=== PATIENT | female | born 1940 | race Caucasian/White ===

== ENCOUNTER → 2023-10-03 13:28 | Outpatient (CLI) | payer MEDICARE, SELFPAY ==
[2023-10-03 14:51] LABS: Cholesterol 193 mg/dL (140-199); HDL Cholesterol 62 mg/dL (40-60); LDL Cholesterol Calculated 115 mg/dL (<100); Triglycerides 79 mg/dL (35-150)
== END ==
PROVIDERS: PCP Family Medicine; Referring Provider Family Medicine; Visit Provider Family Medicine
DX: Z13.220 Encounter for screening for lipoid disorders (principal)
CPT/HCPCS: 80061

== ENCOUNTER 2024-08-27 15:29 | Emergency (ER) | payer MEDICARE, SELFPAY ==
[2024-08-27 15:31] VITALS: BP 166/83; PULSE 67; RESP 20; TEMP 37; O2SAT 99; BMI 25.8
--- NOTE | 2024-08-27 15:48 | ED_ITS ---
<Statement entered by Michael Becker, - 08/27/24 18:18> Dr. Becker: I was immediately available in the department for consultation. Documentation has been reviewed. I agree with assessment and plan. HPI - Abdominal Pain General Chief Complaint: Abdominal Pain Stated Complaint: constipated t-12, sent by GI Time Seen by Provider: 08/27/24 15:48 Source: patient Mode of arrival: Ambulatory History of Present Illness HPI narrative: 84-year-old female presents for chief complaint of not having a bowel movement in the last 12 days. She is denying any abdominal pain, nausea, vomiting, urinary symptoms or back pain. She states prior to this she was having diarrhea on and off for the last year and a half endorsing some type of irritable bowel syndrome. She saw her PCP on August 08 2024 for this very reason. The diarrhea stopped and since that time 12 days ago no further bowel movements. She continues to be hungry, she is eating regularly 5 times a day in a grazing type pattern, solid foods include cheese sandwiches, toast and [place], yogurts and fruits, her last oral intake was 12 noon today. She did try to Fleet enemas 2 days apart without any results, she has been doing MiraLax twice daily. She states she is still passing gas, denies feeling any bloating per se, again no abdominal pain and her clothes are fitting normally. She states she is urinating just fine, drinking 6-8 glasses of water per day. She reports no changes in her overall health, no weight loss or weight gain, no disruption during sleep. History is significant for a midline abdominal scar she apparently had a para esophageal hernia repair with mesh in 2004, she has a chronic left femoral hernia that is reducible, breast cancer with double mastectomy in 2005 no sequelae, COPD no regular medications for this, she spends half her time in [facility] and the other half here in [place]. She has never had a colonoscopy and has been trying to schedule 1. She has a retired psychologist. Both of her parents of cancer her mother from breast at age 66 and her father unknown age from lung cancer. All other systems are reviewed and are negative. Related Data Previous Rx's Medication Instructions Recorded carbamide peroxide 6.5 % ear drops 2 drp otic (ear) DAILY #15 mL 09/28/23 (Debrox) duloxetine 60 mg capsule,delayed 60 mg PO BID #90 caps 06/17/24 release ketoconazole 2 % topical foam 1 applic topical BID seborrheic 08/14/24 dermatitis 4 weeks #100 grams Allergies Allergy/AdvReac Type Severity Reaction Status Date / Time grass pollen AdvReac Mild Unverified 08/08/24 11:09 Review of Systems Review of Systems Narrative: All other systems reviewed and are negative. Patient History Medical History Cognitive decline Age related osteoporosis Diarrhea Sleep apnea COPD (chronic obstructive pulmonary disease) Seasonal allergies Depression (~1959) Anxiety (~1959) Peripheral neuropathy (~2018) Osteoporosis (~2007) Fractures Chicken pox Anemia Shingles (~07/2019) Hearing loss (~2019) Cataracts, bilateral (~03/2019) Frequent UTI (~1961) Paraesophageal hernia (~2007) Breast cancer (~2006) PTSD (post-traumatic stress disorder) Surgical History Anesthesia History of ankle surgery (~1999) Social History Smoking Status: Former smoker Smoking Status: Former smoker Substance Use Type: does not use Exam Initial Vital Signs Initial Vital Signs: Vital Signs Temperature 98.6 F 08/27/24 15:31 Pulse Rate 67 08/27/24 15:31 Respiratory Rate 20 08/27/24 15:31 Blood Pressure 166/83 H 08/27/24 15:31 Pulse Oximetry 99 08/27/24 15:31 Oxygen Delivery Method Room Air 08/27/24 15:31 Vital signs reviewed and are normal except for elevated systolic reading. Const Other: Smiling, seated, reading her magazine, no distress, pleasantly conversing. HENMT Mouth: oral mucosae normal, lip normal and tongue normal Eyes Sclera: sclerae normal Neck Neck: normal visual inspection, full ROM, trachea midline and supple Resp Effort & Inspection: normal respiratory effort and able to speak in complete sentences Auscultation: clear to auscultation bilaterally, no rales, no rhonchi and no wheezes Cardio Rate: regular rate Rhythm: regular rhythm GI Inspection: normal to inspection, non-distended, no incisions and scar Palpation: soft, no hepatosplenomegaly, No firm and No guarding Percussion: normal to percussion and dullness to percussion (LLQ) Auscultation: no hyperactive bowel sounds and hypoactive bowel sounds Rectal Exam: visual inspection normal, normal sphincter tone, No fecal impaction, heme negative stool (Yellow minimal mucus only) and other (No stool in the rectal vault nontender exam) Skin General: no rashes or lesions noted, elasticity normal and turgor normal Course Orders Ordered: ED Orders 08/27/24 16:09 CT abdomen pelvis w con Stat 08/27/24 16:21 CBC Auto Diff [Complete Blood Count AUTO DIFF] Stat CMP [Comprehensive Metabolic Panel] Stat Lipase Stat Vital Signs Vital signs: Vital Signs - 8 hr 08/27/24 15:31 Temperature 98.6 F Pulse Rate 67 Respiratory Rate 20 Blood Pressure 166/83 H Pulse Oximetry 99 Oxygen Delivery Method Room Air MDM - Abdominal Pain Lab Data Lab results narrative: No prior labs in the system, CBC, CMP, lipase obtained. All are normal. 08/27/24 16:21 08/27/24 16:21 Labs: Lab Results 08/27/24 Range/Units 16:21 WBC 5.0 (4.5-11.0) X10^3/uL RBC 4.76 (4.0-5.2) X10^6/uL Hgb 14.3 (12.0-16.0) g/dL Hct 42.3 (36-46) % MCV 88.9 (80-100) fL MCH 30.1 (26-34) PG MCHC 33.8 (30-36) % RDW 14.0 (11.6-14.8) % Plt Count 224 (150-400) X10^3/uL Neut % (Auto) 52.7 (50-75) % Lymph % (Auto) 37.9 (25-40) % Bee % (Auto) 6.2 (3-14) % Eos % (Auto) 2.1 (2-4) % Baso % (Auto) 1.1 (0-2) % Neut # (Auto) 2600 (2487-5396) /uL Lymph # (Auto) 1900 (8026-8027) /uL Bee # (Auto) 300 (0-900) /uL Eos # (Auto) 100 (0-450) /uL Baso # (Auto) 100 (0-100) /uL Sodium 136 L (137-145) mmol/L Potassium 4.0 (3.4-5.1) mmol/L Chloride 102 (98-107) mmol/L Carbon Dioxide 28 (22-32) mmol/L BUN 26 H (7-17) mg/dL Creatinine 0.65 (0.52-1.04) mg/dL Estimated GFR > 60 (>60) mL/min BUN/Creatinine Ratio 40.0 H (6-22) Glucose 99 (80-110) mg/dL Calcium 9.9 (8.4-10.2) mg/dL Total Bilirubin 0.7 (0.2-1.3) mg/dL AST 24 (14-36) IU/L ALT 16 (<35) IU/L Alkaline Phosphatase 52 (38-126) U/L Total Protein 7.0 (6.3-8.2) g/dL Albumin 4.1 (3.5-5.0) g/dL Globulin 2.9 (1.7-4.1) g/dL Albumin/Globulin Ratio 1.4 (1.0-2.8) Lipase 60 (23-300) U/L Imaging Data CT scan - abdomen/pelvis: My Impression: Deferred to radiologist's interpretation below. Radiologist's Impression: PROCEDURE: CT ABDOMEN PELVIS W CON INDICATIONS: No BM x 12 days. Hx breast CA 2005. TECHNIQUE: After the administration of intravenous contrast, axial sections acquired from the lung bases to the pubic symphysis. Coronal and sagittal reformats were performed. For radiation dose reduction, the following was used: automated exposure control, adjustment of mA and/or kV according to patient size. COMPARISON: None. FINDINGS: Image quality: Diagnostic. Lower Chest: 3 mm micronodule of the left lower lobe (5/10) is indeterminate. The heart is enlarged. ABDOMEN: Liver: Multiple cysts are seen in the central liver that measure fluid attenuation. Gallbladder: No radiopaque gallstones or wall thickening. Biliary ducts: Mild central intrahepatic biliary duct dilatation. Common bile duct is dilated and measures up to 22 mm in diameter at the luisito hepatis and 11 mm at the pancreatic head. The duct tapers to the ampulla. No calcified gallstone. Pancreas: Main pancreatic duct is dilated measuring approximately 7 mm in the pancreatic head. No pancreatic mass is seen. Spleen: Spleen is mildly enlarged. Coarse calcifications are likely secondary to remote prior granulomatous disease. Adrenal Glands: No adrenal nodules. Kidneys and Ureters: No hydronephrosis. No complex renal cystic lesion which requires follow up. Fat attenuation lesions are seen in the right kidney measuring 1.3 cm superiorly and up to 1.8 cm more inferiorly consistent with angiomyolipomas. Stomach and Bowel: Redundant colon with a large volume of stool. There is relative underdistention of the distal sigmoid colon without an obstructing mass seen. Small bowel loops are nondilated. Intramural lipoma is noted within a small bowel loop of the right lower quadrant and also in the left upper quadrant. Cecum is located in the right upper quadrant. Appendix is not visualized. Gastric wall appears mildly thickened diffusely. Peritoneum: No abnormal intraperitoneal fluid. No free air. Ventral Wall: Postsurgical changes from prior ventral hernia repair. No recurrent ventral hernia is seen. Abdominal Nodes: Nonspecific lymph node is seen in the left upper abdomen adjacent to the greater curvature of the stomach measuring 0.9 cm in short axis. No retroperitoneal or mesenteric adenopathy by size criteria. Vessels: Aorta and inferior vena cava are normal in size. PELVIS: Pelvic Organs: Unremarkable. Bladder: No bladder wall thickening, accounting for underdistention. Pelvic Nodes: No enlarged lymph nodes. Miscellaneous: No inguinal hernias are seen. Bones: No aggressive osseous abnormality. Mild chronic deformity of the right inferior pubic ramus. No acute osseous abnormality is seen. Degenerative changes are seen in the included spine. Mild T11 compression fracture is of uncertain age, but is favored to be chronic. IMPRESSION: 1. Redundant colon with a large volume of stool. An intermediate length segment of nondistended distal sigmoid colon is seen without mass-like obstruction. 2. Mild diffuse gastric wall thickening could indicate a nonspecific gastritis. 3. Extrahepatic and mild intrahepatic biliary duct dilatation to the level of the ampulla. No obstructing calculus or mass is seen. There is also dilation of the main pancreatic duct. Recommend correlation with laboratory findings to exclude biliary obstruction. Consider follow-up pancreas protocol MRI or CT to exclude a subtle underlying mass. 4. Additional findings as indicated in the body report. Approved by: Kyaw Pizano M.D. on 08/27/2024 at 17:22 [facility] Narrative Medical decision making narrative: Normal labs, no specific abdominal pain, CT scan showed primarily redundant colon with a large volume of stool. An intermediate length segment of nondistended distal sigmoid colon is seen without mass-like obstruction. No clinical findings on examination to warrant surgical consult, discussed other bowel strategies including clear liquids for the next 24-48 hours, doing a trial of magnesium citrate such as a trauma now that we know her renal function is normal, and she will have to contact her PCP in the morning to schedule an emergency room visit follow-up as they were other findings on her CT scan that still warrant additional investigation including: Extrahepatic and mild intrahepatic biliary duct dilatation to the level of the ampulla. No obstructing calculus or mass is seen. There is also dilation of the main pancreatic duct. Her lab work was normal today including all liver function and lipase, low likelihood of a biliary obstruction, regarding possible subtle underlying mass, is recommended that her doctor order either a pancreas protocol MRI or repeat CT. This was discussed with the patient again she will contact her provider in the morning. She is yet to have a colonoscopy in her lifetime apparently she had 1 scheduled but it was ?the wrong kind so she will need to follow this and her PCP can certainly assist her with this as well. Discussed red flag warning signs in great detail and to return to the emergency department if she still has not had a bowel movement in the next 24-48 hours, she develops any new or worrisome symptoms. Discharge Plan Departure Patient Disposition: Home Clinical Impression: Constipation Qualifiers: Constipation type: unspecified constipation type Qualified Code(s): K59.00 - Constipation, unspecified Instructions: DI for Constipation Activity Restrictions/Additional Instructions: I would like you to keep your diet clear liquids for the next 24-48 hours, please do hydrate, you may try magnesium citrate also known as sit trauma [id number] to try and evacuate your colon which did show quite a bit of stool retained. Please contact your PCP tomorrow morning and schedule a follow- up emergency room visit. Your lab work today was normal, but the CT scan did quite a bit of retained stool in the colon, as well as show some other abnormalities (Extrahepatic and mild intrahepatic biliary duct dilatation to the level of the ampulla. No obstructing calculus or mass is seen. There is also dilation of the main pancreatic duct) and these findings warrant follow-up and potentially repeat imaging or a different type of imaging such as MRI. Again this can be arranged by your doctor who will be have access to these notes as well as your diagnostic results from [facility]. Your PCP should be able to assist you with obtaining a colonoscopy as well I can appreciate the frustration you have in attempting to schedule this. Please do not hesitate to return to the emergency department if you have persistent symptoms, any new or worrisome symptoms. Prescriptions: No Action Debrox 6.5 % drops 2 drp otic (ear) DAILY Qty: 15 0RF duloxetine 60 mg capsule,delayed release(DR/EC) 60 mg PO BID Qty: 90 4RF ketoconazole 2 % foam 1 applic topical BID 28 Days Qty: 100 0RF Referrals: Brenda Garcia MD [Primary Care Provider] - Stand Alone Forms: Patient Portal/API
--- NOTE | 2024-08-27 16:09 | DI.CT.S_ITS ---
PROCEDURE: CT ABDOMEN PELVIS W CON INDICATIONS: No BM x 12 days. Hx breast CA 2006. TECHNIQUE: After the administration of intravenous contrast, axial sections acquired from the lung bases to the pubic symphysis. Coronal and sagittal reformats were performed. For radiation dose reduction, the following was used: automated exposure control, adjustment of mA and/or kV according to patient size. COMPARISON: None. FINDINGS: Image quality: Diagnostic. Lower Chest: 3 mm micronodule of the left lower lobe (5/10) is indeterminate. The heart is enlarged. ABDOMEN: Liver: Multiple cysts are seen in the central liver that measure fluid attenuation. Gallbladder: No radiopaque gallstones or wall thickening. Biliary ducts: Mild central intrahepatic biliary duct dilatation. Common bile duct is dilated and measures up to 22 mm in diameter at the luisito hepatis and 11 mm at the pancreatic head. The duct tapers to the ampulla. No calcified gallstone. Pancreas: Main pancreatic duct is dilated measuring approximately 7 mm in the pancreatic head. No pancreatic mass is seen. Spleen: Spleen is mildly enlarged. Coarse calcifications are likely secondary to remote prior granulomatous disease. Adrenal Glands: No adrenal nodules. Kidneys and Ureters: No hydronephrosis. No complex renal cystic lesion which requires follow up. Fat attenuation lesions are seen in the right kidney measuring 1.3 cm superiorly and up to 1.8 cm more inferiorly consistent with angiomyolipomas. Stomach and Bowel: Redundant colon with a large volume of stool. There is relative underdistention of the distal sigmoid colon without an obstructing mass seen. Small bowel loops are nondilated. Intramural lipoma is noted within a small bowel loop of the right lower quadrant and also in the left upper quadrant. Cecum is located in the right upper quadrant. Appendix is not visualized. Gastric wall appears mildly thickened diffusely. Peritoneum: No abnormal intraperitoneal fluid. No free air. Ventral Wall: Postsurgical changes from prior ventral hernia repair. No recurrent ventral hernia is seen. Abdominal Nodes: Nonspecific lymph node is seen in the left upper abdomen adjacent to the greater curvature of the stomach measuring 0.9 cm in short axis. No retroperitoneal or mesenteric adenopathy by size criteria. Vessels: Aorta and inferior vena cava are normal in size. PELVIS: Pelvic Organs: Unremarkable. Bladder: No bladder wall thickening, accounting for underdistention. Pelvic Nodes: No enlarged lymph nodes. Miscellaneous: No inguinal hernias are seen. Bones: No aggressive osseous abnormality. Mild chronic deformity of the right inferior pubic ramus. No acute osseous abnormality is seen. Degenerative changes are seen in the included spine. Mild T11 compression fracture is of uncertain age, but is favored to be chronic. IMPRESSION: 1. Redundant colon with a large volume of stool. An intermediate length segment of nondistended distal sigmoid colon is seen without mass-like obstruction. 2. Mild diffuse gastric wall thickening could indicate a nonspecific gastritis. 3. Extrahepatic and mild intrahepatic biliary duct dilatation to the level of the ampulla. No obstructing calculus or mass is seen. There is also dilation of the main pancreatic duct. Recommend correlation with laboratory findings to exclude biliary obstruction. Consider follow-up pancreas protocol MRI or CT to exclude a subtle underlying mass. 4. Additional findings as indicated in the body report. Approved by: Kyaw Pizano M.D. on 08/27/2024 at 17:22
[2024-08-27 16:39] LABS: Add Manual Diff / Slide Review NO; Basophils Absolute Auto 100 /uL (0-100); Basophils Percent Auto 1.1 % (0-2); Eosinophils Absolute Auto 100 /uL (0-450); Eosinophils Percent Auto 2.1 % (2-4); Hematocrit 42.3 % (36-46); Hemoglobin 14.3 g/dL (12.0-16.0); Lymphocytes Absolute Auto 1900 /uL (1100-4500); Lymphocytes Percent Auto 37.9 % (25-40); Mean Corpuscular HGB Conc 33.8 % (30-36); Mean Corpuscular Hemoglobin 30.1 PG (26-34); Mean Corpuscular Volume 88.9 fL (80-100); Monocytes Absolute Auto 300 /uL (0-900); Monocytes Percent Auto 6.2 % (3-14); Neutrophils Absolute Auto 2600 /uL (1500-7000); Neutrophils Percent Auto 52.7 % (50-75); Platelet Count 224 X10^3/uL (150-400); Red Blood Cell Count 4.76 X10^6/uL (4.0-5.2)
[2024-08-27 16:50] LABS: Alanine Aminotransferase 16 IU/L (<35); Albumin 4.1 g/dL (3.5-5.0); Albumin Globulin Ratio 1.4 (1.0-2.8); Alkaline Phosphatase 52 U/L (38-126); Aspartate Aminotransferase 24 IU/L (14-36); Bilirubin Total 0.7 mg/dL (0.2-1.3); Blood Urea Nitrogen 26 mg/dL (7-17); Calcium 9.9 mg/dL (8.4-10.2); Carbon Dioxide 28 mmol/L (22-32); Chloride 102 mmol/L (98-107); Estimated Glomerular Filt Rate > 60 mL/min (>60); Globulin 2.9 g/dL (1.7-4.1); Glucose 99 mg/dL (80-110); HEMOLYSIS 38 (0-50); Lipase 60 U/L (23-300); Sodium 136 mmol/L (137-145)
[2024-08-27 18:13] VITALS: BP 150/88; PULSE 70; RESP 14; O2SAT 94
== END 2024-08-27 18:17 | disposition home or self-care (01) ==
PROVIDERS: Emergency Provider Physician Assistant Medical; PCP Family Medicine
DX: K59.00 Constipation, unspecified (principal)
CPT/HCPCS: 36415; 74177; 80053; 83690; 85025; 99283; 99284; Q9967

== ENCOUNTER → 2024-09-08 07:44 | Outpatient (CLI) | payer MEDICARE, SELFPAY ==
[2024-09-08 08:54] LABS: Add Manual Diff / Slide Review NO; Basophils Absolute Auto 0 /uL (0-100); Basophils Percent Auto 0.9 % (0-2); Eosinophils Absolute Auto 100 /uL (0-450); Eosinophils Percent Auto 2.8 % (2-4); Hemoglobin 13.9 g/dL (12.0-16.0); Lymphocytes Absolute Auto 1700 /uL (1100-4500); Lymphocytes Percent Auto 39.7 % (25-40); Mean Corpuscular HGB Conc 33.9 % (30-36); Mean Corpuscular Hemoglobin 30.2 PG (26-34); Mean Corpuscular Volume 89.2 fL (80-100); Monocytes Absolute Auto 300 /uL (0-900); Monocytes Percent Auto 6.3 % (3-14); Neutrophils Absolute Auto 2100 /uL (1500-7000); Neutrophils Percent Auto 50.3 % (50-75); Platelet Count 202 X10^3/uL (150-400); Red Cell Distribution Width 14.3 % (11.6-14.8); White Blood Cell Count 4.2 X10^3/uL (4.5-11.0)
--- NOTE | 2024-09-08 09:23 | DI.MRI.S_ITS ---
PROCEDURE: MR HEAD/BRAIN WO CON INDICATIONS: cognitive decline TECHNIQUE: Non-contrast axial T1 spin echo, axial T2 fast spin echo, sagittal and axial FLAIR, coronal T2 fast spin echo, axial gradient echo, axial diffusion and ADC through the brain. COMPARISON: None. FINDINGS: Image quality: Excellent. CSF spaces: Ventricles appear symmetric in size and shape. Basal cisterns are patent. No extra-axial fluid collections. Brain: No intracranial bleeds or mass effects. There is cerebral volume loss for age. There are periventricular and deep white matter chronic small vessel ischemic changes. Brainstem appears normal. Diffusion-weighted images show no acute infarct. No chronic ischemic insults. Normal intravascular flow voids are present. Skull and face: Calvarial bone marrow is normal in signal. Orbits are normal. Note is made of bilateral lens replacements. Sinuses: Sinuses and mastoids are clear. IMPRESSION: Brain MRI within normal limits for age, with note made of brain parenchymal volume loss and chronic small vessel ischemic change. No prior territorial infarct can be seen. No findings of acute or subacute infarction can be seen. To the limits of this noncontrast study, no findings of intracranial masses or mass effect can be seen. Dictated by: Marquise Chandra M.D. on 09/08/2024 at 10:13 Approved by: Marquise Chandra M.D. on 09/08/2024 at 10:14
[2024-09-08 09:35] LABS: Alanine Aminotransferase 13 IU/L (<35); Albumin 3.9 g/dL (3.5-5.0); Albumin Globulin Ratio 1.5 (1.0-2.8); Alkaline Phosphatase 60 U/L (38-126); Aspartate Aminotransferase 19 IU/L (14-36); BUN Creatinine Ratio 40.3 (6-22); Bilirubin Total 0.6 mg/dL (0.2-1.3); Blood Urea Nitrogen 25 mg/dL (7-17); Calcium 10.2 mg/dL (8.4-10.2); Carbon Dioxide 27 mmol/L (22-32); Chloride 105 mmol/L (98-107); Estimated Glomerular Filt Rate > 60 mL/min (>60); Globulin 2.6 g/dL (1.7-4.1); Glucose 95 mg/dL (80-110); HEMOLYSIS < 15 (0-50); Potassium 4.1 mmol/L (3.4-5.1); Sodium 138 mmol/L (137-145); Total Protein 6.5 g/dL (6.3-8.2)
[2024-09-08 10:07] LABS: TSH w/ Reflex to FT4 3.05 uIU/mL (0.47-4.68)
[2024-09-08 10:22] LABS: Vitamin B12 Reflex MMA if <400 365 pg/mL (239-931)
[2024-09-11 00:15] LABS: Methylmalonic Acid,Serum 449 nmol/L (0-378)
== END ==
PROVIDERS: PCP Family Medicine; Referring Provider Family Medicine; Visit Provider Family Medicine
DX: R41.89 Other symptoms and signs involving cognitive functions and awareness (principal)
CPT/HCPCS: 36415; 70551; 80053; 82607; 83921; 84443; 85025

== ENCOUNTER 2024-09-26 10:21 | Day surgery (SDC) | payer MEDICARE, SELFPAY ==
[2024-09-26] MEDS: FLEETS ENEMA 1 EACH PR (10:52)
[2024-09-26 11:14] VITALS: BP 150/87; PULSE 68; RESP 18; TEMP 36.7; O2SAT 98
--- NOTE | 2024-09-26 11:29 | PM.HP.1 ---
History of Present Illness History of Present Illness Date Patient Seen: 09/26/24 Time Patient Seen: 11:29 Chief complaint: Dx Colonoscopy w/poss bx Narrative: This is an 84-year-old white female with 3 years of change in bowel habits. She has never had a colonoscopy before. She has had predominant diarrhea up until the last few months where she has had predominantly constipation. She had a CT scan performed in August which demonstrated a thickened narrowed segment of sigmoid colon with redundant proximal colon full of stool. She has been trying to treat herself with Mag citrate and MiraLax without success. She has altered her diet to decrease white bread and increase whole grains and fiber but still does not have what she would call a normal bowel movement. [facility] Medical History Declining functional status Seborrheic dermatitis Common bile duct dilation Cognitive decline Age related osteoporosis Diarrhea Sleep apnea COPD (chronic obstructive pulmonary disease) Seasonal allergies Depression (~1959) Anxiety (~1959) Peripheral neuropathy (~2018) Osteoporosis (~2007) Fractures Chicken pox Anemia Shingles (~07/2019) Hearing loss (~2019) Cataracts, bilateral (~03/2019) Frequent UTI (~1961) Paraesophageal hernia (~2007) Breast cancer (~2006) PTSD (post-traumatic stress disorder) Surgical History Anesthesia History of ankle surgery (~1999) Social History Smoking Status: Former smoker Meds Home Medications and Allergies Home Medications Medication Instructions Recorded Confirmed Type carbamide peroxide 6.5 % ear drops 2 drp otic (ear) DAILY #15 mL 09/28/23 09/10/24 Rx (Debrox) duloxetine 60 mg capsule,delayed 60 mg PO BID #90 caps 06/17/24 09/10/24 Rx release diazepam 2 mg tablet (Valium) 2 mg PO BEDTIME PRN anxiety #10 09/08/24 09/10/24 Rx tabs donepezil 5 mg tablet 5 mg PO DAILY #30 tabs 09/08/24 09/10/24 Rx ketoconazole 2 % shampoo 1 applic topical 2XW #120 mL 09/08/24 09/10/24 Rx sodium,potassium,mag sulfates 17.5 See Rx Instructions PO .COMPLEX 09/11/24 Rx gram-3.13 gram-1.6 gram oral soln #354 mL (Suprep Bowel Prep Kit) Allergies Allergy/AdvReac Type Severity Reaction Status Date / Time grass pollen AdvReac Mild Unverified 09/10/24 16:34 Review of Systems Constitutional Constitutional: Denies anorexia, Denies increased appetite, Denies weight gain and Denies weight loss Eyes Eyes: Reports system reviewed and no additional complaints, except as documented ENT Ears, Nose, Mouth, and Throat: Yes system reviewed and no additional complaints, except as documented Cardiovascular Cardiovascular: Reports system reviewed and no additional complaints, except as documented Respiratory Respiratory: Reports system reviewed and no additional complaints, except as documented Gastrointestinal Gastrointestinal: Denies melena, Reports bloating, Denies hematochezia, Reports change in stool character, Reports constipation and Denies vomiting Genitourinary Genitourinary: Reports system reviewed and no additional complaints, except as documented Musculoskeletal Musculoskeletal: Reports system reviewed and no additional complaints, except as documented Integumentary/Breasts Skin/Breast: Reports system reviewed and no additional complaints, except as documented Neurologic Neurologic: Reports system reviewed and no additional complaints, except as documented Psychiatric Psychiatric: Reports system reviewed and no additional complaints, except as documented Endocrine Endocrine: Reports system reviewed and no additional complaints, except as documented Hematologic/Lymphatic Hematologic/Lymphatic: Reports system reviewed and no additional complaints, except as documented Allergic/Immunologic Allergic/Immunologic: Reports system reviewed and no additional complaints, except as documented Exam Const General: cooperative and frail appearing [facility] Head: normocephalic and atraumatic Mouth: oral mucosae normal and moist mucous membranes Neck Neck: normal visual inspection and trachea midline Resp Effort & Inspection: normal respiratory effort and able to speak in complete sentences Auscultation: clear to auscultation bilaterally Cardio Rate: regular rate Rhythm: regular rhythm GI Palpation: soft, No firm, No guarding and No tender Skin General: no rashes or lesions noted Neuro General: patient alert, patient awake and patient oriented x3 Extrem General: normal to inspection Psych Appearance: grossly normal Objective Imaging CT scan - abdomen: My impression: CT scan of the abdomen independently reviewed by me shows potentially a thickened area of the sigmoid colon that may be worth endoscopic investigation Assessment & Plan Assessment and plan (1) Encounter for diagnostic colonoscopy due to change in bowel habits: Status: Acute (2) Abnormal CT of the abdomen: Status: Acute Plan given the change in bowel habits abnormal CT of the abdomen, it is worth performing a colonoscopy on this patient. She completed the prep as instructed she states over 2 days, but still has some chunks of brown stool. Explained to her we would do our best to see what we can see and given the findings on the CT scan at least a flexible sigmoidoscopy may be helpful in clearing cancer diagnosis from the suspicious area. Patient presents for initial screening colonoscopy Risks, benefits, alternatives to colonoscopy explained, including but not limited to bowel perforation or other serious complication requiring surgery at less than 1 in 5000 colonoscopies, abdominal pain, cramping or bleeding and less than 1% of colonoscopies, and the chances that we find a diagnosis that would require further intervention of about 2%. Patient agrees to proceed. Time-Based Coding :: [TOTAL MINUTES] spent with patient and on the chart (including review of chart, obtaining history, exam, reviewing outside data, placing orders, documenting exam and treatment plan, and counseling patient) on [DATE].
--- NOTE | 2024-09-26 12:23 | PM.OP.COLON ---
Operative Date/Time/Diagnoses Date of procedure: 09/26/24 Time of procedure: 12:23 Pre-op diagnosis: Constipation Post-op diagnosis: same ( pancolonic diverticulosis, subcutaneous lipoma of the splenic flexure) Procedure & Clinicians Study performed: colonoscopy Same procedure as scheduled: Yes Indications: change in bowel habits, abnormal CT scan Surgeon: Ulises Louise Procedure Notes SCOAP/Timeout: performed Procedure in detail: time-out was performed. Mac was induced. Patient was placed in left lateral decubitus position. The perineum was inspected without any gross abnormality. Lubricated pediatric colonoscope was inserted and advanced to the cecum. The terminal ileum was intubated. The colonoscope was withdrawn slowly inspecting the circumference of the colon. there was pancolonic diverticulosis most prominently in the sigmoid and cecum. Additionally, she had a 2 cm subcutaneous lipoma of the splenic flexure that was not obstructing. Special attention was paid to the sigmoid colon where the change in diameter was noted on a CT scan, this appeared to be related to diverticular disease without any other mucosal abnormality.Very small polyps may have been missed, prep quality was adequate. Retroflexed view of the rectum showed small, non prolapsed nonbleeding internal hemorrhoids. The scope was withdrawn the patient was taken to PACU in good condition. Scope withdrawal time: 9 Sedation minutes: 32 Findings: divertiulosis and other findings ( 2 cm subcutaneous lipoma of the splenic flexure) Specimen(s): none sent Complications: none Impression: diverticulosis, lipoma, otherwise normal colonoscopy. Post-procedure Recommendations: High fiber diet and Other recommendation(s) ( Given her age and findings, I do not recommend any routine screening colonoscopy in the future.) Follow up: as needed
[2024-09-26 12:25] VITALS: BP 130/93; PULSE 70; RESP 17; TEMP 37.2; O2SAT 97
[2024-09-26 12:30] VITALS: BP 141/89; PULSE 69; RESP 14; O2SAT 96
[2024-09-26 12:35] VITALS: BP 140/94; PULSE 69; RESP 13; O2SAT 97
[2024-09-26 12:44] VITALS: BP 144/109; PULSE 85; RESP 15; TEMP 36.9; O2SAT 96
== END 2024-09-26 13:01 | disposition home or self-care (01) ==
PROVIDERS: PCP Family Medicine; Referring Provider Surgery; Visit Provider Surgery
PROC: 0DJD8ZZ Inspection of Lower Intestinal Tract, Via Natural or Artificial Opening Endoscopic (ICD-10-PCS; CPT 45378; principal; 2024-09-26 12:00)
DX: K59.00 Constipation, unspecified (principal); K57.30 Diverticulosis of large intestine without perforation or abscess without bleeding; D17.5 Benign lipomatous neoplasm of intra-abdominal organs; K64.8 Other hemorrhoids
CPT/HCPCS: 45378; J2704